=== PATIENT | female | born 1975 | race Caucasian/White ===

== ENCOUNTER → 2022-06-06 | Day surgery (SDC) | payer OTHER ==
[~2022-06-06] VITALS: Ht 154.9 cm; Wt 72.6 kg
[~2022-06-06] MED LIST: ACYCLOVIR5 GM TOP; ALEVE220 M1 PO; ALPRAZOLAM0.5 MG PO; AMOXICILLIN875 MG PO; CATAPRES 0.1MG0.1 MG PO; CETIRIZINE HCL10 MG PO; CLONIDINE HCL0.1 MG PO; HYDRALAZINE HCL50 MG PO; IBU800 MG PO; LISINOPRIL-HCT1 EAC2 PO; PERCOCET 5-3251 EACH PO; PRILOSEC OTC20 MG PO; ZESTRIL20 MG PO
[2022-06-06 10:10] LABS: HEMOGLOBIN 14.8 gm/dl (12.3-15.3); RED BLOOD COUNT 4.92 M/UL (4.00-5.10); WHITE BLOOD COUNT 13.3 K/UL (4.5-11.0)
== END | disposition home or self-care (01) ==
LOC: OR 09:07
PROVIDERS: Orthopaedic Surgery
DX: S82.842A Displaced bimalleolar fracture of left lower leg, initial encounter for closed fracture (principal); X50.1XXA Overexertion from prolonged static or awkward postures, initial encounter; Z88.1 Allergy status to other antibiotic agents; Z88.5 Allergy status to narcotic agent; Z88.8 Allergy status to other drugs, medicaments and biological substances; Z53.09 Procedure and treatment not carried out because of other contraindication
CPT/HCPCS: 80048; 84703; 85025; 93005; J0690

== ENCOUNTER 2022-06-12 20:24 | Inpatient (IN) | payer OTHER ==
[~2022-06-12] VITALS: Ht 165.1 cm; Wt 68.0 kg
[~2022-06-12 20:24] MED LIST changes: -ACYCLOVIR5 GM TOP; -ALEVE220 M1 PO; -ALPRAZOLAM0.5 MG PO; -AMOXICILLIN875 MG PO; -CLONIDINE HCL0.1 MG PO; -HYDRALAZINE HCL50 MG PO; -LISINOPRIL-HCT1 EAC2 PO; -PERCOCET 5-3251 EACH PO
[2022-06-13 04:11] LABS: HEMOGLOBIN 13.6 gm/dl (12.3-15.3); RED BLOOD COUNT 4.61 M/UL (4.00-5.10); WHITE BLOOD COUNT 13.7 K/UL (4.5-11.0)
[2022-06-13] MEDS ORDERED: ACYCLOVIR5 GM TOP (09:33)
[2022-06-13] MEDS ORDERED: LISINOPRIL-HCT1 EAC2 PO (09:34)
[2022-06-13] MEDS ORDERED: CLONIDINE HCL0.1 MG PO (09:35)
[2022-06-13] MEDS ORDERED: ALEVE220 M1 PO (09:36)
[2022-06-13] MEDS ORDERED: PERCOCET 5-3251 EACH PO (09:40)
[2022-06-14 02:57] LABS: HEMOGLOBIN 14.2 gm/dl (12.3-15.3); RED BLOOD COUNT 4.77 M/UL (4.00-5.10)
[2022-06-15 03:20] LABS: HEMOGLOBIN 12.9 gm/dl (12.3-15.3)
[2022-06-15 03:26] LABS: RED BLOOD COUNT 4.25 M/UL (4.00-5.10); WHITE BLOOD COUNT 17.7 K/UL (4.5-11.0)
[2022-06-16 03:58] LABS: HEMOGLOBIN 13.3 gm/dl (12.3-15.3); RED BLOOD COUNT 4.44 M/UL (4.00-5.10)
[2022-06-16 04:05] LABS: WHITE BLOOD COUNT 13.1 K/UL (4.5-11.0)
[2022-06-18 03:21] LABS: RED BLOOD COUNT 4.66 M/UL (4.00-5.10); WHITE BLOOD COUNT 14.7 K/UL (4.5-11.0)
[2022-06-18] MEDS ORDERED: CLONIDINE HCL0.1 MG PO (10:05)
[2022-06-18] MEDS ORDERED: PERCOCET 5-3251 EACH PO (10:05)
[2022-06-18] MEDS ORDERED: HYDRALAZINE HCL50 MG PO (10:05)
[2022-06-18] MEDS ORDERED: ALPRAZOLAM0.5 MG PO (10:05)
[2022-06-18] MEDS ORDERED: AMOXICILLIN875 MG PO (10:16)
== END 2022-06-18 15:37 | disposition home or self-care (01) | DRG 493 ==
LOC: M/S 20:24 → CCU 20:24 → EDSTATUS 06-13 11:15 → OR 06-13 11:15 → M/S 06-13 16:46
PROVIDERS: Internal Medicine; Podiatrist Foot & Ankle Surgery; ADMIT Internal Medicine Infectious Disease
PROC: 0QSH04Z Reposition Left Tibia with Internal Fixation Device, Open Approach (ICD-10-PCS; principal; 2022-06-13 11:15)
PROC: 0QSK04Z Reposition Left Fibula with Internal Fixation Device, Open Approach (ICD-10-PCS; principal; 2022-06-13 11:15)
PROC: 0SSG04Z Reposition Left Ankle Joint with Internal Fixation Device, Open Approach (ICD-10-PCS; 2022-06-13 11:15)
PROC: 0S9G0ZZ Drainage of Left Ankle Joint, Open Approach (ICD-10-PCS; 2022-06-13 11:15)
DX: S82.842A Displaced bimalleolar fracture of left lower leg, initial encounter for closed fracture (principal); J98.11 Atelectasis; L03.116 Cellulitis of left lower limb; N17.9 Acute kidney failure, unspecified; Z20.822 Contact with and (suspected) exposure to COVID-19; I12.9 Hypertensive chronic kidney disease with stage 1 through stage 4 chronic kidney disease, or unspecified chronic kidney disease; N18.30 Chronic kidney disease, stage 3 unspecified; K21.9 Gastro-esophageal reflux disease without esophagitis; E87.6 Hypokalemia; I16.0 Hypertensive urgency; M25.372 Other instability, left ankle; F41.9 Anxiety disorder, unspecified; G43.909 Migraine, unspecified, not intractable, without status migrainosus; W18.30XA Fall on same level, unspecified, initial encounter; Z88.1 Allergy status to other antibiotic agents; Z88.5 Allergy status to narcotic agent; Z88.2 Allergy status to sulfonamides; Z88.8 Allergy status to other drugs, medicaments and biological substances; Z98.891 History of uterine scar from previous surgery
CPT/HCPCS: 36415; 71045; 73610; 76000; 80048; 80053; 84703; 85025; 85027; 86140; 87070; 87205; 93005; 96372; 96374; 96375; 96376; C1713; G0378; G0379; J0171; J0295; J0360; J0690; J1100; J1170; J1644; J1885; J2001; J2250; J2270; J2405; J2704; J2710; J2795; J3010; J3370; U0002

== ENCOUNTER → 2022-07-03 | Outpatient (CLI) | payer OTHER ==
[~2022-07-03] MED LIST changes: +ACYCLOVIR5 GM TOP; +ALEVE220 M1 PO; +ALPRAZOLAM0.5 MG PO; +AMOXICILLIN875 MG PO; +CLONIDINE HCL0.1 MG PO; +HYDRALAZINE HCL50 MG PO; +LISINOPRIL-HCT1 EAC2 PO; +PERCOCET 5-3251 EACH PO
== END ==
LOC: KOH-I 12:57
DX: M25.572 Pain in left ankle and joints of left foot (principal); Z96.662 Presence of left artificial ankle joint
CPT/HCPCS: 73610